=== PATIENT | female | born 1985 | race Two or more races ===

== ENCOUNTER 2019-05-28 13:04 | Outpatient (CLI) | payer OTHER ==
[~2019-05-28] VITALS: Ht 165.1 cm; Wt 99.8 kg
== END 2019-05-28 17:00 | disposition home or self-care (01) ==
LOC: OFIC 805 13:04
DX: R13.19 Other dysphagia (principal); K21.9 Gastro-esophageal reflux disease without esophagitis; R07.0 Pain in throat